=== PATIENT | female | born 2000 | race Caucasian/White ===

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

== ENCOUNTER 2018-01-07 03:48 | Emergency (ER) | payer OTHER ==
[2018-01-07] MEDS ORDERED: ONDANSETRON 4 MG/2 ML VIAL IVP ONE (04:23)
[2018-01-07] MEDS ORDERED: NS 1,000 ML IV ONE (04:23)
[2018-01-07] MEDS ORDERED: fentaNYL 100 MCG/2 ML INJ IVP ONE (04:23)
[2018-01-07 04:34] LABS: PLATELET COUNT 186 10^3/uL (150-400)
--- NOTE | 2018-01-07 04:34 | EDPHY ---
H & P Stated Complaint: R flank pain Time Seen by Provider: 01/07/18 04:00 HPI/ROS: HPI The patient presents with right flank pain which began yesterday at about 4:00 p.m. And got progressively worse throughout the course of the day. It awoke her from sleep at approximately 2:30 a.m. This morning and was quite severe. She describes it as aching pain which radiates from her right flank into her right abdomen. She has been taking Toradol every 6 hr for pain though has not required Mclean. She did exercise 2 days ago at the gym because she was feeling very well. On January 01, 6 d ago, she underwent cystoscopy, right ureteroscopy, laser lithotripsy, basket extraction of 6 mm right-sided kidney stone with tangler stent placed by Dr. Stein at [facility]. Two days ago she removed the stent without difficulty at home. She has had intermittent hematuria that this has become worse over the last 1 day. She is having dysuria as well. She does not have a fever or any vomiting. REVIEW OF SYSTEMS Constitutional: No fever, no chills. Eyes: No discharge. ENT: No sore throat. Cardiovascular: No chest pain, no palpitations. Respiratory: No cough, no shortness of breath. Gastrointestinal: See HPI Genitourinary: Positive for hematuria. Musculoskeletal: No back pain. Skin: No rashes. Neurological: No headache. PMHx: Right-sided kidney stone as above Soc Hx: Lives with family, college student PHYSICAL General Appearance: Alert, uncomfortable appearing Eyes: Pupils equal and round no pallor or injection ENT, Mouth: Mucous membranes moist Respiratory: There are no retractions, lungs are clear to auscultation Cardiovascular: Regular rate and rhythm Gastrointestinal: Abdomen is soft and non-tender, no masses, bowel sounds normal Back: There is mild right-sided flank tenderness Neurological: A&O, moves all extremities Skin: Warm and dry, no rashes Musculoskeletal: Neck is supple non tender Extremities: symmetrical, full range of motion Psychiatric: Patient is oriented X 3, there is no agitation Source: Patient Exam Limitations: No limitations - Medical/Surgical History Hx Asthma: No Hx Chronic Respiratory Disease: No Hx Diabetes: No Hx Cardiac Disease: No Hx Renal Disease: No Hx Cirrhosis: No Hx Alcoholism: No Hx HIV/AIDS: No Hx Splenectomy or Spleen Trauma: No Other PMH: [facility] 2014 - Social History Smoking Status: Never smoked Constitutional: Initial Vital Signs Temperature (C) 36.6 C 01/07/18 04:20 Heart Rate 63 01/07/18 04:20 Respiratory Rate 18 01/07/18 04:20 Blood Pressure 121/69 H 01/07/18 04:20 O2 Sat (%) 100 01/07/18 04:20 O2 Delivery Mode Room Air Allergies/Adverse Reactions: No Known Allergies Allergy (Unverified 05/12/09 07:52) Home Medications: Medication Instructions Recorded NK [No Known Home Meds] 01/07/18 Medical Decision Making - Diagnostics Imaging Results: Ultrasound renal demonstrates mild right-sided hydronephrosis with debris in the right UVJ, discussed with Dr. Mukherjee of Radiology. KUB shows no obvious foreign body, reviewed by me, formal interpretation is pending. Imaging: Discussed imaging studies w/ rehabilitation psychologist Radiologist Differential Diagnosis: This is a 17-year-old female, recently diagnosed with right-sided renal calculus measuring 6 mm, 6 days status post lithotripsy and stent placement, 2 days status post stent removal, who now presents with hematuria and increased right flank pain. On arrival, vital signs are normal though she is uncomfortable appearing. She does have right flank pain. She was started on IV fluids and medication for pain with improvement in her symptoms on reassessment. Labs were checked and revealed no leukocytosis, creatinine was 1.2 from baseline of 0.9. UA demonstrates red blood cells predominantly with some white blood cells and leukocyte esterase as well as bacteria. Ultrasound was performed which did demonstrate mild right-sided hydronephrosis and debris in the distal right ureter. KUB was performed which showed no stent in place. The case was discussed with the on-call urologist Dr. Loyd. We discussed the patient's presentation, labs and imaging results. Given that she is feeling much better, able to take p. O., no overt signs of infection, she will be discharged home with follow up with Dr. Aceves today. She is happy with this plan. Her pain could be related to the small amount of debris in the distal right ureter, verses some irritation of her urinary system from the stent placement, less likely suspect infection. - Data Points Laboratory Results: Laboratory Results 01/07/18 04:13 01/07/18 04:13 01/07/18 01/07/18 01/07/18 05:13 04:13 04:13 WBC 9.73 10^3/uL H 10^3/uL (3.80-9.50) RBC 4.58 10^6/uL 10^6/uL (4.18-5.33) Hgb 13.2 g/dL g/dL (12.6-16.3) Hct 39.2 % % (38.0-47.0) MCV 85.6 fL fL (81.5-99.8) MCH 28.8 pg pg (27.9-34.1) MCHC 33.7 g/dL g/dL (32.4-36.7) RDW 12.6 % % (11.5-15.2) Plt Count 186 10^3/uL 10^3/uL (150-400) MPV 11.7 fL fL (8.7-11.7) Neut % (Auto) 67.0 % % (39.3-74.2) Lymph % (Auto) 22.8 % % (15.0-45.0) [place] % (Auto) 8.3 % % (4.5-13.0) Eos % (Auto) 1.2 % % (0.6-7.6) Baso % (Auto) 0.4 % % (0.3-1.7) Nucleat RBC Rel Count 0.0 % % (0.0-0.2) Absolute Neuts (auto) 6.51 10^3/uL H 10^3/uL (1.70-6.50) Absolute Lymphs (auto) 2.22 10^3/uL 10^3/uL (1.00-3.00) Absolute Monos (auto) 0.81 10^3/uL H 10^3/uL (0.30-0.80) Absolute Eos (auto) 0.12 10^3/uL 10^3/uL (0.03-0.40) Absolute Basos (auto) 0.04 10^3/uL 10^3/uL (0.02-0.10) Absolute Nucleated RBC 0.00 10^3/uL 10^3/uL (0-0.01) Immature Gran % 0.3 % % (0.0-1.1) Immature Gran # 0.03 10^3/uL 10^3/uL (0.00-0.10) Sodium 143 mEq/L mEq/L (135-145) Potassium 3.7 mEq/L mEq/L (3.3-5.0) Chloride 108 mEq/L mEq/L (97-110) Carbon Dioxide 20 mEq/l L mEq/l (22-31) Anion Gap 15 mEq/L mEq/L (8-16) BUN 16 mg/dL mg/dL (7-23) Creatinine 1.2 mg/dL H mg/dL (0.6-1.0) Estimated GFR 58 Glucose 85 mg/dL mg/dL (70-100) Calcium 9.7 mg/dL mg/dL (8.5-10.4) Urine Color RED Urine Appearance MODERATELY TURBID Urine pH 6.0 (5.0-7.5) Ur Specific [place] 1.006 (1.002-1.030) Urine Protein 2+ H (NEGATIVE) Urine Ketones NEGATIVE (NEGATIVE) Urine Blood 2+ H (NEGATIVE) Urine Nitrate NEGATIVE (NEGATIVE) Urine Bilirubin NEGATIVE (NEGATIVE) Urine Urobilinogen NEGATIVE EU EU (0.2-1.0) Ur Leukocyte Esterase TRACE H (NEGATIVE) Urine RBC 50-182 /hpf H /hpf (0-3) Urine WBC 25-50 /hpf H /hpf (0-3) Ur Epithelial Cells TRACE /lpf /lpf (NONE-1+) Urine Bacteria 3+ /hpf H /hpf (NONE SEEN) Urine Mucus 1+ /lpf /lpf (NONE-1+) Urine Glucose NEGATIVE (NEGATIVE) Medications Given: Discontinued Medications Fentanyl (Sublimaze) 50 mcg IVP EDNOW ONE Stop: 01/07/18 04:24 Last Admin: 01/07/18 04:32 Dose: 50 mcg Sodium Chloride (Ns) 1,000 mls @ 0 mls/hr IV EDNOW ONE; Wide Open PRN Reason: Protocol Stop: 01/07/18 04:24 Last Admin: 01/07/18 04:32 Dose: 1,000 mls Ondansetron HCl (Zofran) 4 mg IVP EDNOW ONE Stop: 01/07/18 04:24 Last Admin: 01/07/18 04:31 Dose: 4 mg Departure - Departure Disposition: Home, Routine, Self-Care Clinical Impression: Right flank pain Hematuria Qualifiers: Hematuria type: unspecified type Qualified Code(s): R31.9 - Hematuria, unspecified Hydronephrosis Qualifiers: Hydronephrosis type: with ureteropelvic junction obstruction Qualified Code(s) : Q62.11 - Congenital occlusion of ureteropelvic junction Condition: Good Instructions: Ureteral Stent Placement (DC) Additional Instructions: Please call your urologist this morning to arrange for follow-up. You should make sure to drink plenty of fluids and take her medication as prescribed. If your worse in any way, you should return to the emergency department. Referrals: Katharine Royal MD [Primary Care Provider] - As per Instructions Chrissie Stein MD [Medical Doctor] - As per Instructions
[2018-01-07 06:39] VITALS: BP 106/70
== END 2018-01-07 07:19 | disposition home or self-care (01) ==
DX: R10.9 Unspecified abdominal pain (principal); R31.9 Hematuria, unspecified; N13.0 Hydronephrosis with ureteropelvic junction obstruction; E86.9 Volume depletion, unspecified
CPT/HCPCS: 96374; J2405; J3010

== ENCOUNTER → 2018-03-17 | Outpatient (CLI) | payer OTHER | LOC: FIMAGING 12:30 | PROVIDERS: ATTEND Urology | DX: M79.601 Pain in right arm (principal); R60.0 Localized edema ==